=== PATIENT | male | born 1985 | race American Indian/Alaskan Native ===

== ENCOUNTER 2016-10-12 10:33 | Emergency (ER) | payer MEDICAID, OTHER ==
[2016-10-12 10:33] VITALS: BMI 38.8
[2016-10-12 10:43] VITALS: O2SAT 98
--- NOTE | 2016-10-12 11:18 | ED PDOC ---
Arrival/HPI - General Chief Complaint: Trauma Time Seen by Provider: 10/12/16 11:18 Historian: Patient - History of Present Illness Narrative History of Present Illness (Text): 10/12/16 11:27 This 31 yo male presents to this ED c/o left shoulder, and left upper back pain x 2 days. Patient stated he tripped and fell down on a "pallet" at work. Denies loc, head injury, dizziness, n/v, neck pain, saddle anesthesia, GI/ incontinence, urinary retention, weakness, Context: Work Past Medical History - Provider Review Nursing Documentation Reviewed: Yes - Infectious Disease Hx of Infectious Diseases: None - Tetanus Immunization Tetanus Immunization: Unknown - Past Medical History Past Medical History: No Previous - Cardiac Hx Hypertension: Yes - Psychiatric Hx Depression: No Hx Emotional Abuse: No Hx Physical Abuse: No Hx Substance Use: No - Past Surgical History Past Surgical History: No Previous - Anesthesia Hx Anesthesia: No - Suicidal Assessment Feels Threatened In Home Enviroment: No Family/Social History - Physician Review Nursing Documentation Reviewed: Yes Family/Social History: No Known Family HX Smoking Status: Never Smoked Hx Alcohol Use: Yes (social) Frequency of alcohol use: Socially Hx Substance Use: No Hx Substance Use Treatment: No Allergies/Home Meds Allergies/Adverse Reactions: Allergies Sulfa (Sulfonamide Antibiotics) Allergy (Verified 10/12/16 10:43) ANGIOEDEMA Iodinated Contrast Media - Oral and Adverse Reaction (Verified 10/12/16 10:43) ANAPHYLAXIS Review of Systems - Review of Systems Constitutional: Normal. absent: Fatigue, Weight Change, Fevers, Night Sweats Eyes: Normal ENT: Normal Respiratory: Normal Cardiovascular: Normal Gastrointestinal: Normal Genitourinary Male: Normal Musculoskeletal: Other (right shoulder pain. right upper back pain) Skin: Normal Neurological: Normal Endocrine: Normal Hemo/Lymphatic: Normal Psychiatric: Normal Physical Exam Vital Signs Temp Pulse Resp BP Pulse Ox 10/12/16 11:38 98.9 F 90 18 142/91 H 98 10/12/16 10:40 99.7 F H 90 16 146/104 H 98 Temperature: Afebrile Blood Pressure: Normal Pulse: Regular Respiratory Rate: Normal Appearance: Positive for: Well-Appearing, Non-Toxic, Comfortable Pain Distress: None Mental Status: Positive for: Alert and Oriented X 3 - Systems Exam Head: Present: Atraumatic, Normocephalic Pupils: Present: PERRL Extroacular Muscles: Present: EOMI Conjunctiva: Present: Normal Mouth: Present: Moist Mucous Membranes Neck: Present: Normal Range of Motion Respiratory/Chest: Present: Clear to Auscultation, Good Air Exchange, Tender to Palpation (posterior upper back tenderness). No: Respiratory Distress, Accessory Muscle Use, Wheezes Cardiovascular: Present: Regular Rate and Rhythm, Normal S1, S2. No: Murmurs Abdomen: Present: Normal Bowel Sounds. No: Tenderness, Distention, Peritoneal Signs Back: Present: Normal Inspection. No: CVA Tenderness Upper Extremity: Present: Normal Inspection, Normal ROM, NORMAL PULSES, Neurovascularly Intact, Capillary Refill < 2s. No: Cyanosis, Edema Lower Extremity: Present: Normal Inspection, NORMAL PULSES, Normal ROM, Neurovascularly Intact, Capillary Refill < 2 s. No: Edema, CALF TENDERNESS Neurological: Present: GCS=15, CN II-XII Intact, Speech Normal, Motor Func Grossly Intact, Normal Sensory Function, Normal Cerebellar Funct, Gait Normal Skin: Present: Warm, Dry, Normal Color. No: Rashes Psychiatric: Present: Alert, Oriented x 3, Normal Insight, Normal Concentration Medical Decision Making ED Course and Treatment: 10/12/16 13:23 Re-evaluation. Patient feels better. Discussed results and plan with patient who expresses understanding. All questions answered and there is agreement with the plan to discharge home with instructions. Patient stable for discharge. Return if symptoms persist or worsen. Re-evaluation Time: 13:23 Reassessment Condition: Re-examined, Improved - RAD Interpretation Narrative RAD Interpretations (Text): 10/12/16 13:21 Accession No. : [id number] Patient Name / ID : CAROLINA FARIAS / [id number] Exam Date : 10/12/2016 12:09:23 ( Approved ) Study Comment : Sex / Age : M / 31Y Creator : Rkii Richey MD Dictator : Riki Richey MD Fuel Testing Technician : Mesh Man : Riki Richey MD Approver2 : Report Date : 10/12/2016 13:17:33 My Comment : PROCEDURE: Radiographs of the Chest and Left Ribs. HISTORY: pain COMPARISON: None available. TECHNIQUE: Frontal radiograph of the chest and multiple oblique radiographs of the left ribs were obtained. FINDINGS: LEFT RIBS: No fracture or focal lesion visualized. LUNGS: Clear. PLEURA: No pneumothorax or pleural fluid. CARDIOVASCULAR: Normal sized heart. No pulmonary vascular congestion. OTHER FINDINGS: None. IMPRESSION: Unremarkable radiographs of the chest and left ribs. No left rib fracture. 10/12/16 13:22 Accession No. : [id number] Patient Name / ID : CAROLINA FARIAS / [id number] Exam Date : 10/12/2016 12:20:29 ( Approved ) Study Comment : Sex / Age : M / 31Y Creator : Riki Richey MD Dictator : Riki Richey MD Fuel Testing Technician : Mesh Man : Riki Richey MD Approver2 : Report Date : 10/12/2016 13:16:23 My Comment : PROCEDURE: Radiographs of the Left Shoulder HISTORY: pain COMPARISON: 03/05/2014 FINDINGS: BONES: Normal. No fracture. JOINTS: Normal. Glenohumeral and acromioclavicular joints preserved. No osteoarthritis. SOFT TISSUES: Normal. OTHER FINDINGS: None. IMPRESSION: Normal radiographs of the left shoulder. Radiology Orders: 10/12/16 11:24 RIBS LEFT & PA CHEST [RAD] Stat SHOULDER LEFT [RAD] Stat - Medication Orders Current Medication Orders: Discontinued Medications Acetaminophen (Tylenol 325mg Tab) 975 mg PO STAT STA Stop: 10/12/16 11:34 Last Admin: 10/12/16 11:40 Dose: 975 mg Ketorolac Tromethamine (Toradol) 15 mg IM STAT STA Stop: 10/12/16 11:26 Last Admin: 10/12/16 11:36 Dose: 15 mg Disposition/Present on Arrival - Present on Arrival Any Indicators Present on Arrival: No History of DVT/PE: No History of Uncontrolled Diabetes: No Urinary Catheter: No History of Decub. Ulcer: No History Surgical Site Infection Following: None - Disposition Have Diagnosis and Disposition been Completed?: Yes Diagnosis: Shoulder pain, left, Chest wall pain Disposition: HOME/ ROUTINE Disposition Time: 13:23 Patient Plan: Discharge Condition: GOOD Discharge Instructions (ExitCare): Shoulder Pain (ED), Chest Wall Pain (ED) Additional Instructions: Call private doctor for follow up visit in 1-2 days. Take medication as instructed. Return to emergency if symptoms worsen. Prescriptions: Methocarbamol [Robaxin-750] 750 mg PO TID PRN #15 tab PRN Reason: Pain, Moderate (4-7) Naproxen 500 mg PO BID PRN #14 tab PRN Reason: Pain, Moderate (4-7) Referrals: Adelaida Fowler MD [Primary Care Provider] - Follow up with primary Forms: WORK NOTE
[2016-10-12 11:39] VITALS: RESP 18; TEMP 98.9
--- NOTE | 2016-10-12 13:18 | RAD ---
PROCEDURE: Radiographs of the Left Shoulder HISTORY: pain COMPARISON: 03/05/2014 FINDINGS: BONES: Normal. No fracture. JOINTS: Normal. Glenohumeral and acromioclavicular joints preserved. No osteoarthritis. SOFT TISSUES: Normal. OTHER FINDINGS: None. IMPRESSION: Normal radiographs of the left shoulder.
--- NOTE | 2016-10-12 13:19 | RAD ---
PROCEDURE: Radiographs of the Chest and Left Ribs. HISTORY: pain COMPARISON: None available. TECHNIQUE: Frontal radiograph of the chest and multiple oblique radiographs of the left ribs were obtained. FINDINGS: LEFT RIBS: No fracture or focal lesion visualized. LUNGS: Clear. PLEURA: No pneumothorax or pleural fluid. CARDIOVASCULAR: Normal sized heart. No pulmonary vascular congestion. OTHER FINDINGS: None. IMPRESSION: Unremarkable radiographs of the chest and left ribs. No left rib fracture.
[2016-10-12 13:22] VITALS: BP 138/86; PULSE 86
== END 2016-10-12 13:43 | disposition home or self-care (01) ==
LOC: ED 10:33
DX: R07.89 Other chest pain (principal); M25.512 Pain in left shoulder; I10 Essential (primary) hypertension
CPT/HCPCS: 29240; 71101; 73030; 96372; 99284; J1885

== ENCOUNTER 2017-10-25 17:03 | Emergency (ER) | payer OTHER ==
[2017-10-25 17:04] VITALS: BMI 38.8
[2017-10-25 17:13] VITALS: TEMP 99.2
--- NOTE | 2017-10-25 17:50 | ED PDOC ---
Arrival/HPI - General Chief Complaint: Cough, Cold, Congestion Time Seen by Provider: 10/25/17 17:16 - History of Present Illness Narrative History of Present Illness (Text): 10/25/17 17:43 Patient is a 32 year old non-smoking male with no significant past medical history who presents to the Emergency department comlpaining of shortness of breath. Patient says that last week he noticed his allergies started to worsen because of all the pollen in the air and was having sinus congestion, sinus headache, and clear rhinorrhea that progressed to thicker yellow nasal discharge on Tuesday. Patient says that these symptoms have not improved and yesterday he started having chest tightness and pleuritic chest pain. Then today when the patient woke up he started having a nonproductive cough, shortness of breath, and wheezing. He admits to associated chills and sweats, although he did not take his temperature at home and is unsure if he had a fever , ear fullness, and nausea. Patient denies sore throat, palpitations, dizziness , ear pain, vomiting, diarrhea, constipation, changes in urinary habits, pain/ swelling in the lower extremities, recent travel, and sick contacts. Past Medical History - Infectious Disease Hx of Infectious Diseases: None - Tetanus Immunization Tetanus Immunization: Unknown - Past Medical History Past Medical History: No Previous - Cardiac Hx Cardiac Disorders: Yes Hx Hypertension: Yes - Pulmonary Hx Respiratory Disorders: No - Neurological Hx Neurological Disorder: No - HEENT Hx HEENT Disorder: No - Renal Hx Renal Disorder: No - Endocrine/Metabolic Hx Endocrine Disorders: No - Hematological/Oncological Hx Blood Disorders: No - Integumentary Hx Dermatological Disorder: No - Musculoskeletal/Rheumatological Hx Musculoskeletal Disorders: No - Gastrointestinal Hx Gastrointestinal Disorders: No - Genitourinary/Gynecological Hx Genitourinary Disorders: No - Psychiatric Hx Psychophysiologic Disorder: No Hx Substance Use: No - Past Surgical History Past Surgical History: No Previous - Anesthesia Hx Anesthesia: No - Suicidal Assessment Feels Threatened In Home Enviroment: No Family/Social History Family/Social History: Diabetes, Hypertension Smoking Status: Never Smoked Hx Alcohol Use: Yes Frequency of alcohol use: Socially Hx Substance Use: No Hx Substance Use Treatment: No Allergies/Home Meds Allergies/Adverse Reactions: Allergies Sulfa (Sulfonamide Antibiotics) Allergy (Verified 10/25/17 17:07) ANGIOEDEMA Iodinated Contrast- Oral and IV Dye Adverse Reaction (Verified 10/25/17 17:07) ANAPHYLAXIS Review of Systems - Physician Review All systems were reviewed & negative as marked: Yes (as per HPI) - Review of Systems Constitutional: Other (alternating chills and sweats) Eyes: absent: Vision Changes, Eye Pain ENT: Hearing Changes (dull in the left), Rhinorrhea, Sinus Congestion. absent: Sore Throat Respiratory: SOB, Cough, Wheezing. absent: Sputum Cardiovascular: Chest Pain (reproducible). absent: Palpitations, Edema, Calf Pain Gastrointestinal: Normal. absent: Abdominal Pain, Constipation, Diarrhea, Nausea, Vomiting, Appetite Changes Genitourinary Male: Normal. absent: Dysuria, Frequency, Hematuria Musculoskeletal: Normal. absent: Arthralgias, Myalgias Skin: Normal. absent: Rash Neurological: Headache. absent: Dizziness Endocrine: Normal Hemo/Lymphatic: Normal Psychiatric: Normal Physical Exam Vital Signs Temp Pulse Resp BP Pulse Ox 10/25/17 17:08 99.2 F 93 H 20 146/100 H 95 - Systems Exam Head: Present: Atraumatic, Normocephalic, Tenderness (sinuses TTP) Pupils: Present: PERRL Extroacular Muscles: Present: EOMI Conjunctiva: Present: Normal Mouth: Present: Moist Mucous Membranes Pharnyx: Present: Normal. No: ERYTHEMA, EXUDATE, TONSILS ENLARGED Nose (Internal): Present: Normal Inspection Neck: Present: Normal Range of Motion. No: Lymphadenopathy Respiratory/Chest: Present: Wheezes (heard in the right upper lung anteriorly). No: Rhonchi Cardiovascular: Present: Regular Rate and Rhythm, Normal S1, S2. No: Murmurs Abdomen: Present: Normal Bowel Sounds. No: Tenderness, Distention, Peritoneal Signs Back: Present: Normal Inspection Upper Extremity: Present: Normal Inspection Lower Extremity: Present: Normal Inspection Neurological: Present: GCS=15, Speech Normal Skin: Present: Warm, Dry, Normal Color. No: Rashes Psychiatric: Present: Alert, Oriented x 3, Normal Insight, Normal Concentration Medical Decision Making ED Course and Treatment: 10/25/17 18:29 Chest X-ray: No infiltrates seen Discussed with PMD, Dr. Fowler, who agrees with management. Patient will be discharged with antibiotics and told to follow up with Dr. Fowler in her office. - RAD Interpretation Radiology Orders: 10/25/17 17:40 CHEST TWO VIEWS (PA/LAT) [RAD] Stat - PA / JAVA SECURITY ENGINEER / Resident Statement /DO has reviewed & agrees with the documentation as recorded. / has examined the patient and agrees with the treatment plan. Disposition/Present on Arrival - Present on Arrival Any Indicators Present on Arrival: No History of DVT/PE: No History of Uncontrolled Diabetes: No Urinary Catheter: No History of Decub. Ulcer: No History Surgical Site Infection Following: None - Disposition Have Diagnosis and Disposition been Completed?: Yes Diagnosis: Acute sinusitis Disposition: HOME/ ROUTINE Disposition Time: 18:32 Patient Plan: Discharge Condition: STABLE Discharge Instructions (ExitCare): Sinusitis in Adults Prescriptions: Amoxicillin/Clavulanate [Augmentin 875 MG-125 MG] 1 tab PO BID #14 tab Referrals: Adelaida Fowler MD [Primary Care Provider] - Follow up with primary Forms: [facility] (Pashto), WORK NOTE
--- NOTE | 2017-10-25 18:35 | RAD ---
HISTORY: cough COMPARISON: 10/12/2016 TECHNIQUE: Chest PA and lateral FINDINGS: LUNGS: No active pulmonary disease. PLEURA: No significant pleural effusion identified. No pneumothorax apparent. CARDIOVASCULAR: Normal. OSSEOUS STRUCTURES: No significant abnormalities. VISUALIZED UPPER ABDOMEN: Normal. OTHER FINDINGS: None. IMPRESSION: No active disease.
[2017-10-25 19:27] VITALS: BP 135/82; PULSE 89; RESP 18; O2SAT 97
--- NOTE | 2017-10-28 13:44 | CARD ---
APPROVED REPORT EKG Measurement Heart [id number] <Conclusion> Normal sinus rhythm Left axis deviation Incomplete right bundle branch block Moderate voltage criteria for LVH, may be normal variant Nonspecific T wave abnormality
== END 2017-10-25 18:38 | disposition home or self-care (01) ==
LOC: ED 17:03
DX: J01.90 Acute sinusitis, unspecified (principal); I10 Essential (primary) hypertension

== ENCOUNTER 2018-02-14 23:07 | Emergency (ER) | payer OTHER ==
[2018-02-15 00:21] VITALS: BMI 38.9
--- NOTE | 2018-02-15 00:22 | ED PDOC ---
"Arrival/HPI - General Time Seen by Provider: 02/15/18 00:21 Historian: Patient - History of Present Illness Narrative History of Present Illness (Text): 02/15/18 00:21 32 y/o male, pmh including sinusitis, allergic to sulfa medication and contrast dye, c/o lower abdominal pain and testicular swelling with fever x 3 days. Pt. stated that he has been having fever 103F at home on tuesday, associated with lower abdominal pain which he feels constipated but did had bowel movement today , stated that he feels the rt. testicle has been swollen but no penile discharge , last sexual encounter about 1 month ago, no night sweat, no rash, no coughing , no neck stiffness or blurry vision, no other medical or psychological complaints. PMD: Dr. Fowler Past Medical History - Provider Review Nursing Documentation Reviewed: Yes - Infectious Disease Hx of Infectious Diseases: None - Tetanus Immunization Tetanus Immunization: Unknown - Past Medical History Past Medical History: No Previous - Cardiac Hx Cardiac Disorders: Yes Hx Hypertension: Yes - Pulmonary Hx Respiratory Disorders: No - Neurological Hx Neurological Disorder: No - HEENT Hx HEENT Disorder: No - Renal Hx Renal Disorder: No - Endocrine/Metabolic Hx Endocrine Disorders: No - Hematological/Oncological Hx Blood Disorders: No - Integumentary Hx Dermatological Disorder: No - Musculoskeletal/Rheumatological Hx Musculoskeletal Disorders: No - Gastrointestinal Hx Gastrointestinal Disorders: No - Genitourinary/Gynecological Hx Genitourinary Disorders: No - Psychiatric Hx Psychophysiologic Disorder: No Hx Substance Use: No - Past Surgical History Past Surgical History: No Previous - Anesthesia Hx Anesthesia: No - Suicidal Assessment Feels Threatened In Home Enviroment: No Family/Social History - Physician Review Nursing Documentation Reviewed: Yes Family/Social History: Unknown Family HX Smoking Status: Never Smoked Hx Alcohol Use: Yes Hx Substance Use: No Hx Substance Use Treatment: No Allergies/Home Meds Allergies/Adverse Reactions: Allergies Sulfa (Sulfonamide Antibiotics) Allergy (Verified 02/15/18 00:21) ANGIOEDEMA Iodinated Contrast- Oral and IV Dye Adverse Reaction (Verified 02/15/18 00:21) ANAPHYLAXIS Review of Systems - Review of Systems Constitutional: absent: Fatigue, Fevers Eyes: absent: Vision Changes ENT: absent: Hearing Changes Respiratory: absent: SOB, Cough Cardiovascular: absent: Chest Pain Gastrointestinal: Abdominal Pain. absent: Diarrhea, Nausea, Vomiting Musculoskeletal: absent: Arthralgias, Back Pain Skin: absent: Rash, Pruritis Psychiatric: absent: Anxiety, Depression, Suicidal Ideation Physical Exam Vital Signs Reviewed: Yes Vital Signs Temp Pulse Resp BP Pulse Ox 02/15/18 03:58 78 20 130/92 H 98 02/15/18 01:30 18 134/70 98 02/15/18 00:22 99.0 F 90 18 157/102 H 99 Temperature: Afebrile Blood Pressure: Hypertensive Pulse: Regular Respiratory Rate: Normal Appearance: Positive for: Well-Appearing, Non-Toxic, Comfortable Pain Distress: Mild Mental Status: Positive for: Alert and Oriented X 3 - Systems Exam Head: Present: Atraumatic, Normocephalic Pupils: Present: PERRL Extroacular Muscles: Present: EOMI Conjunctiva: Present: Normal Mouth: Present: Moist Mucous Membranes Neck: Present: Normal Range of Motion Respiratory/Chest: Present: Clear to Auscultation, Good Air Exchange. No: Respiratory Distress, Accessory Muscle Use Cardiovascular: Present: Regular Rate and Rhythm, Normal S1, S2. No: Murmurs Abdomen: Present: Tenderness (LLQ), Other (negative christiansen). No: Distention, Peritoneal Signs, Rebound, Guarding Genitourinary Male: Present: Normal External Genitalia, Circumcised Penis. No: Lesions, Penile Discharge, Testicle Tenderness, Penile Swelling, Masses, Erythema, Hernias, Testicle Swelling Back: Present: Normal Inspection Upper Extremity: Present: Normal Inspection. No: Cyanosis, Edema Lower Extremity: Present: Normal Inspection. No: Edema Neurological: Present: GCS=15, CN II-XII Intact, Speech Normal Skin: Present: Warm, Dry, Normal Color. No: Rashes Psychiatric: Present: Alert, Oriented x 3, Normal Insight, Normal Concentration Medical Decision Making ED Course and Treatment: 02/15/18 00:41 Differential: Pancreatitis vs. Diverticulitis vs. Epididmysitis/Orchitis vs. UTI -Labs/lipase/UA -CT abdomen and pelvis (pt. is allergic to oral and IV contrast since 5 year old ) -Scrotal sonogram -IVF/pepcid -Observe and reassess 02/15/18 03:04 -CT abdomen and pelvis show: No acute findings -Labs are non-significant with no elevation of wbc -Lipase within normal limit -UA and testicular sonogram ordered, pending result. -Pt. is still sleeping, resting comfortably, easily arousable, offers no other medical or psychological complaints, vitally stable, pending labs/radiology result -Case discussed and endorsed to the current ER attending Dr. Babin for re- evaluation/pending UA/Testicular sonogram study. - Lab Interpretations Lab Results: 02/15/18 01:07 02/15/18 01:07 Lab Results 02/15/18 01:07: Sodium 143, Potassium 4.0, Chloride 102, Carbon Dioxide 30, Anion Gap 15, BUN 11, Creatinine 0.9, Est GFR ( Amer) > 60, Est GFR (Non- Af Amer) > 60, Random Glucose 100, Calcium 8.6, Magnesium 2.0, Total Bilirubin 0.7, AST 28, ALT 25, Alkaline Phosphatase 64, Total Protein 7.5, Albumin 3.9, Globulin 3.6, Albumin/Globulin Ratio 1.1, Lipase 28 02/15/18 01:07: WBC 4.9 D, RBC 4.26, Hgb 12.3 L, Hct 37.2 L, MCV 87.3, MCH 28.9 , MCHC 33.1, RDW 12.2, Plt Count 199, MPV 10.6, Gran % 50.2, Lymph % (Auto) 24.1 , Ross % (Auto) 24.1 H, Eos % (Auto) 1.0 L, Baso % (Auto) 0.6, Gran # 2.44, Lymph # (Auto) 1.2, Ross # (Auto) 1.2 H, Eos # (Auto) 0.1, Baso # (Auto) 0.03, Neutrophils % (Manual) 54, Band Neutrophils % 1, Lymphocytes % (Manual) 25, Monocytes % (Manual) 20 H, Platelet Evaluation Normal, Large Platelets Present, Giant Platelets Present - RAD Interpretation Radiology Orders: 02/15/18 00:37 ABD & PELVIS W/O PO OR IV CONT [CT] Stat TESTES DUPLEX COMPLETE [US] Stat Testicular sonogram: CT Abdomen and pelvis: Lung bases: No acute findings. No mass. No consolidation. ABDOMEN: Liver: No acute findings. Gallbladder and bile ducts: No acute findings. No calcified stones. No ductal dilation. Pancreas: No acute findings. No ductal dilation. Spleen: No acute findings. No splenomegaly. Adrenals: No acute findings. No mass. Kidneys and ureters: No acute findings. No obstructing stones. No hydronephrosis. Stomach and bowel: No acute findings. No obstruction. No mucosal thickening. PELVIS: Appendix: No findings to suggest acute appendicitis. Bladder: No acute findings. No stones. JARRETT FIGUEROA | Preliminary Radiology Report DOCUMENT CONTROL ASSOCIATE (QA) DISCREPANCY? If there is a discrepancy between the preliminary and final interpretation, please notify [facility] via [email or web address]. If you do not have access to our QA portal, call our QA team at [phone] CONFIDENTIALITY STATEMENT This report is intended only for the use of the referring physician, and only in accordance with law, If you received this in error, call [phone] Page 2 of 2 Reproductive: No acute findings. ABDOMEN and PELVIS: Intraperitoneal space: No acute findings. No free air. No significant fluid collection. Bones/joints: No acute fracture. No dislocation. Soft tissues: No acute findings. Vasculature: No acute findings. No abdominal aortic aneurysm. Lymph nodes: No acute findings. No enlarged lymph nodes. IMPRESSION: No acute findings. Thank you for allowing us to participate in the care of your patient. Dictated and Authenticated by: Kaleb Xavier MD 02/15/2018 2:38 AM Eastern Time ([place] & [place]) Consumer Marketing Analyst: Radiologist - Medication Orders Current Medication Orders: Discontinued Medications Amoxicillin (Amoxil 500 Mg Cap) 500 mg PO STAT STA PRN Reason: Protocol Stop: 02/15/18 03:35 Last Admin: 02/15/18 03:57 Dose: 500 mg Dexamethasone (Decadron Inj) 10 mg IM STAT STA Stop: 02/15/18 03:35 Last Admin: 02/15/18 03:57 Dose: 10 mg IM Administration Charges Document 02/15/18 03:57 SS (Rec: 02/15/18 03:57 SS [id number]) Injection Site MAR Injection Site Left Vastus Lateralis Charges for Administration # of IM Administrations 1 Famotidine (Pepcid) 20 mg IVP STAT STA Stop: 02/15/18 00:40 Last Admin: 02/15/18 01:37 Dose: 20 mg IVP Administration Document 02/15/18 01:37 SS (Rec: 02/15/18 01:37 SS [id number]) Charges for Administration # of IVP Administrations 1 Sodium Chloride (Sodium Chloride 0.9%) 1,000 mls @ 999 mls/hr IV .Q1H1M STA Stop: 02/15/18 01:37 Last Admin: 02/15/18 01:38 Dose: 999 mls/hr eMAR Start Stop Document 02/15/18 01:38 SS (Rec: 02/15/18 01:38 SS [id number]) Intravenous Solution Start Date 02/15/18 Start Time 01:38 End Date 02/15/18 End time 02:38 Total Infusion Time 60 Ibuprofen (Motrin Tab) 400 mg PO ONCE STA Stop: 02/15/18 03:35 Last Admin: 02/15/18 03:57 Dose: 400 mg - PA / REAMER HAND / Resident Statement MD/DO has reviewed & agrees with the documentation as recorded. Disposition/Present on Arrival - Present on Arrival Any Indicators Present on Arrival: No History of DVT/PE: No History of Uncontrolled Diabetes: No Urinary Catheter: No History of Decub. Ulcer: No History Surgical Site Infection Following: None - Disposition Have Diagnosis and Disposition been Completed?: Yes Diagnosis: Pharyngitis, acute, Viral syndrome Disposition: HOME/ ROUTINE Disposition Time: 03:05 Patient Plan: Other (transfer the care to Dr. Babin) Condition: GOOD Discharge Instructions (ExitCare): Sore Throat in Adults Prescriptions: Amoxicillin 875 mg PO BID #20 tab Referrals: Rebeka Valenzuela MD [Medical Doctor] - Follow up with primary Forms: [employer] ([place] Islander), WORK NOTE"
[2018-02-15 00:24] VITALS: TEMP 99
[2018-02-15] MEDS ORDERED: Sodium Chloride 0.9% 1,000 ML IV STA (00:37)
[2018-02-15 01:41] VITALS: O2SAT 98
[2018-02-15 01:42] LABS: BASO # 0.03 K/mm3 (0.0-2.0); BASO % 0.6 % (0.0-3.0); EOS # 0.1 (0.0-0.7); GRAN # 2.44 (1.4-6.5); GRAN % 50.2 % (50.0-68.0); HEMOGLOBIN 12.3 g/dL (14.0-18.0); LYMPH # 1.2 (1.2-3.4); LYMPH % 24.1 % (22.0-35.0); MEAN CELL VOLUME 87.3 fl (80.0-105.0); MEAN CORPUSCULAR HEMOGLOBIN 28.9 pg (25.0-35.0); MEAN CORPUSCULAR HGB CONC 33.1 g/dl (31.0-37.0); MEAN PLATELET VOLUME 10.6 fl (7.0-11.0); MONO # 1.2 (0.1-0.6); MONO % 24.1 % (1.0-6.0); PLATELET COUNT 199 10^3/uL (120.0-450.0); RBC 4.26 10^6/uL (3.5-6.1); RED CELL DISTRIBUTION WIDTH 12.2 % (11.5-14.5); WHITE BLOOD COUNT 4.9 10^3/ul (4.5-11.0)
[2018-02-15 01:54] LABS: ALB/GLOB RATIO 1.1 (1.1-1.8); ALBUMIN 3.9 g/dL (3.0-4.8); ALT/SGPT 25 U/L (7-56); AST/SGOT 28 U/L (17-59); BLOOD UREA NITROGEN 11 mg/dL (7-21); CALCIUM 8.6 mg/dL (8.4-10.5); GFR NON-AFRICAN AMERICAN > 60; LIPASE 28 U/L (23-300)
[2018-02-15 02:12] LABS: BAND 1 % (0-2); LYMPHOCYTE 25 % (22.0-35.0); NEUTROPHIL 54 % (50.0-70.0)
[2018-02-15 02:15] LABS: MONOCYTE 20 % (1.0-6.0); PLATELET ESTIMATE NORMAL (NORMAL)
[2018-02-15 02:16] LABS: GIANT PLATELETS PRESENT; LARGE PLATELETS PRESENT
[2018-02-15 03:59] VITALS: BP 130/92; PULSE 78; RESP 20
--- NOTE | 2018-02-15 07:33 | US ---
Date of service: 02/15/2018 HISTORY: testicular swelling? TECHNIQUE: Realtime sonography through the scrotum with color and doppler flow. COMPARISON: None Available. FINDINGS: RIGHT TESTICLE: Measures 3.5 x 2.0 x 2.9 cm. Blood flow is demonstrated. Unremarkable echotexture. RIGHT EPIDIDYMIS: Unremarkable. LEFT TESTICLE: Measures 4.4 x 2.1 x 3.2 cm. Blood flow is demonstrated. Unremarkable echotexture. LEFT EPIDIDYMIS: Unremarkable. HYDROCELE: Small left-sided hydrocele. VARICOCELE: Bilateral varicoceles. OTHER FINDINGS: None. IMPRESSION: Small left-sided hydrocele. Bilateral varicoceles. Preliminary impression was provided by virtual radiologic.
--- NOTE | 2018-02-15 07:49 | CT ---
PROCEDURE: CT Abdomen and Pelvis without Oral or IV contrast. HISTORY: lower abdominal pain COMPARISON: None available TECHNIQUE: Contiguous axial images of the abdomen and pelvis. No oral or IV contrast administered. Coronal and Sagittal reformats generated. Radiation dose: Total exam DLP = 1081.78 mGy-cm. This CT exam was performed using one or more of the following dose reduction techniques: Automated exposure control, adjustment of the mA and/or kV according to patient size, and/or use of iterative reconstruction technique. FINDINGS: There is limited evaluation of the solid organs without the administration of IV contrast. LOWER THORAX: No visible consolidation, pleural effusion, or pneumothorax. Small hiatal hernia/distal esophageal wall thickening. LIVER: Unremarkable unenhanced appearance. GALLBLADDER AND BILE DUCTS: Unremarkable unenhanced appearance. PANCREAS: Unremarkable unenhanced appearance. SPLEEN: Unremarkable unenhanced appearance. ADRENALS: Unremarkable unenhanced appearance. KIDNEYS AND URETERS: No hydronephrosis or obstructing renal calculus. BLADDER: The urinary bladder appears unremarkable. REPRODUCTIVE: Unremarkable. APPENDIX: The appendix appears within normal limits of caliber. No secondary signs of acute appendicitis. BOWEL: The stomach is nondistended. Lack of oral contrast limits evaluation for bowel pathology. The bowel loops appear within normal limits of caliber without evidence of intestinal obstruction. PERITONEUM: No significant free fluid. No definite free air. LYMPH NODES: No bulky lymphadenopathy identified. VASCULATURE: No aortic aneurysm. BONES: No acute osseous abnormality is detected. OTHER FINDINGS: None. IMPRESSION: No acute pathology identified. Findings as above. Preliminary impression was provided by virtual radiologic.
== END 2018-02-15 03:59 | disposition home or self-care (01) ==
LOC: ED 23:07
DX: J02.9 Acute pharyngitis, unspecified (principal); B34.9 Viral infection, unspecified; I10 Essential (primary) hypertension
CPT/HCPCS: 74176; 80053; 83690; 83735; 85025; 93975; 96361; 96372; 96374; 99283; J1100; J7030

== ENCOUNTER 2018-04-19 18:57 | Emergency (ER) | payer OTHER ==
[2018-04-19 19:07] VITALS: BMI 39.1
[2018-04-19 19:16] VITALS: BP 163/99; PULSE 85; RESP 16; TEMP 99.2; O2SAT 99
--- NOTE | 2018-04-19 20:09 | ED PDOC ---
Arrival/HPI - General Chief Complaint: Back Pain Time Seen by Provider: 04/19/18 19:22 Historian: Patient - History of Present Illness Narrative History of Present Illness (Text): 04/19/18 20:06 Patient is a 32 year old male with no significant past medical history, who presents to the Emergency department complaining of mid lower to lower back pain, which started today. Patient reports that his discomfort is reproducible with bending, and movement. He denies any recent trauma to the area, and thinks he positioned himself awkwardly causing his discomfort. Patient states he feels better when resting. patient denies any abdominal pain, leg or arm weakness, urinary or bowel habit changes, fever, or any other complaints. Time/Duration: Other (Today) Symptom Onset: Sudden Symptom Course: Unchanged Context: Home Past Medical History - Provider Review Nursing Documentation Reviewed: Yes - Infectious Disease Hx of Infectious Diseases: None - Tetanus Immunization Tetanus Immunization: Unknown - Past Medical History Past Medical History: No Previous - Cardiac Hx Cardiac Disorders: Yes Hx Hypertension: Yes - Pulmonary Hx Respiratory Disorders: No - Neurological Hx Neurological Disorder: No - HEENT Hx HEENT Disorder: No - Renal Hx Renal Disorder: No - Endocrine/Metabolic Hx Endocrine Disorders: No - Hematological/Oncological Hx Blood Disorders: No - Integumentary Hx Dermatological Disorder: No - Musculoskeletal/Rheumatological Hx Musculoskeletal Disorders: No - Gastrointestinal Hx Gastrointestinal Disorders: No - Genitourinary/Gynecological Hx Genitourinary Disorders: No - Psychiatric Hx Psychophysiologic Disorder: No Hx Substance Use: No - Past Surgical History Past Surgical History: No Previous - Anesthesia Hx Anesthesia: No - Suicidal Assessment Feels Threatened In Home Enviroment: No Family/Social History - Physician Review Nursing Documentation Reviewed: Yes Family/Social History: No Known Family HX Smoking Status: Never Smoked Hx Alcohol Use: Yes Hx Substance Use: No Hx Substance Use Treatment: No Allergies/Home Meds Allergies/Adverse Reactions: Allergies Sulfa (Sulfonamide Antibiotics) Allergy (Verified 04/19/18 19:33) ANGIOEDEMA Iodinated Contrast- Oral and IV Dye Adverse Reaction (Verified 04/19/18 19:33) ANAPHYLAXIS Review of Systems - Physician Review All systems were reviewed & negative as marked: Yes - Review of Systems Constitutional: absent: Fevers Gastrointestinal: absent: Abdominal Pain, Constipation, Diarrhea Genitourinary Male: absent: Urinary Output Changes Musculoskeletal: Back Pain. absent: Neck Pain Neurological: absent: Headache, Dizziness, Other (upper or lower extremity weakness) Physical Exam Vital Signs Reviewed: Yes Vital Signs Temp Pulse Resp BP Pulse Ox 04/19/18 19:06 99.2 F 85 16 163/99 H 99 Temperature: Afebrile Blood Pressure: Hypertensive Pulse: Regular Respiratory Rate: Normal Appearance: Positive for: Well-Appearing Mental Status: Positive for: Alert and Oriented X 3 - Systems Exam Head: Present: Atraumatic, Normocephalic Pupils: Present: PERRL Extroacular Muscles: Present: EOMI Conjunctiva: Present: Normal Mouth: Present: Moist Mucous Membranes Neck: Present: Normal Range of Motion Respiratory/Chest: Present: Clear to Auscultation, Good Air Exchange. No: Respiratory Distress, Accessory Muscle Use Cardiovascular: Present: Regular Rate and Rhythm, Normal S1, S2. No: Murmurs Abdomen: No: Tenderness, Distention, Peritoneal Signs Back: Present: Normal Inspection, Paraspinal Tenderness (mild para lumbar tenderness and spasm.). No: Other (dorsal spinal tenderness) Upper Extremity: Present: Normal Inspection, Normal ROM. No: Cyanosis, Edema Lower Extremity: Present: Normal Inspection, Normal ROM. No: Edema Neurological: Present: GCS=15, CN II-XII Intact, Speech Normal, Motor Func Grossly Intact, Normal Sensory Function Skin: Present: Warm, Dry, Normal Color. No: Rashes Psychiatric: Present: Alert, Oriented x 3, Normal Insight, Normal Concentration Medical Decision Making ED Course and Treatment: 04/19/18 20:10 Impression: 32 year old male complaining of back pain that started today, and which he attributes to awkward positioning. Differential Diagnosis included but are not limited to: musculoskeletal pain vs. sciatica vs. fracture. Plan: -- Flexeril -- Toradol -- Dorsal spine X-ray -- Spine X-ray -- Reassess and disposition Prior Visits: Notes and results from previous visits were reviewed. Progress Notes: - RAD Interpretation Radiology Orders: 04/19/18 19:32 DORSAL (THORACIC) SPINE [RAD] Stat LS SPINE WITH OBL > 18 YRS OLD [RAD] Stat - Medication Orders Current Medication Orders: Discontinued Medications Cyclobenzaprine HCl (Flexeril) 10 mg PO ONCE ONE Stop: 04/19/18 19:33 Last Admin: 04/19/18 19:40 Dose: 5 mg Ketorolac Tromethamine (Toradol) 60 mg IM ONCE ONE Stop: 04/19/18 19:33 Last Admin: 04/19/18 19:39 Dose: 60 mg MAR Pain Assessment Document 04/19/18 19:39 TA (Rec: 04/19/18 19:40 TA [id number] Pain Reassessment Is this a pain reassessment? No Sleep Is patient sleeping during reassessment? No Presence of Pain Presence of Pain Yes Pain Scale Used Protocol: PSCALES Pain Scale Used Numeric Location Upper or Lower Lower Pain Location Body Site Back Description Description Constant IM Administration Charges Document 04/19/18 19:39 TA (Rec: 04/19/18 19:40 TA [id number]) Injection Site MAR Injection Site Right Deltoid Charges for Administration # of IM Administrations 1 - Scribe Statement The provider has reviewed the documentation as recorded by the Scribe Owen Peters Provider Scribe Attestation: All medical record entries made by the Scribe were at my direction and personally dictated by me. I have reviewed the chart and agree that the record accurately reflects my personal performance of the history, physical exam, medical decision making, and the department course for this patient. I have also personally directed, reviewed, and agree with the discharge instructions and disposition. Disposition/Present on Arrival - Present on Arrival Any Indicators Present on Arrival: No History of DVT/PE: No History of Uncontrolled Diabetes: No Urinary Catheter: No History of Decub. Ulcer: No History Surgical Site Infection Following: None - Disposition Have Diagnosis and Disposition been Completed?: Yes Diagnosis: Back muscle spasm, Back strain Disposition: HOME/ ROUTINE Disposition Time: 20:59 Patient Plan: Discharge Condition: GOOD Discharge Instructions (ExitCare): Muscle Strain (DC), Muscle Spasms (DC), Low Back Pain (DC) Additional Instructions: Rest/no strenuous physical activity/take meds as prescribed/follow up with your doctor this week Prescriptions: Cyclobenzaprine [Cyclobenzaprine HCl] 10 mg PO TID PRN #15 tab PRN Reason: Muscle Spasm Naproxen [Naprosyn] 500 mg PO BID PRN #14 tab PRN Reason: Pain Referrals: Adelaida Fowler MD [Primary Care Provider] - Follow up with primary Forms: [employer] ([place]), WORK NOTE
--- NOTE | 2018-04-20 08:43 | RAD ---
Date of service: 04/19/2018 HISTORY: pain COMPARISON: No prior. FINDINGS: BONES: Kyphosis slightly accentuated likely on the basis of mildly anterior wedge compression fractures of T7, T8 and T9. No destructive bony lesion appreciated. No spondylolisthesis. DISC SPACES: Multilevel spondylosis identified. SOFT TISSUES: Normal. OTHER FINDINGS: None. IMPRESSION: Mild anterior wedge compression fracture of T7, T8 and T9 creating mild hyper kyphotic deformity. These fractures of are of indeterminate age. MRI or bone scan can properly determine the age of these fractures. No spondylolisthesis. Mild multilevel spondylosis.
--- NOTE | 2018-04-20 08:44 | RAD ---
Date of service: 04/19/2018 PROCEDURE: Radiographs of the Lumbar Spine. HISTORY: pain COMPARISON: No prior. FINDINGS: BONES: Mild straightening of the lumbar curvature without fracture or spondylolisthesis identified. No destructive bony lesion appreciable. Intervertebral body and disc interspace heights appear within normal limits. DISC SPACES: Unremarkable. OTHER FINDINGS: None. IMPRESSION: Straightened curvature without fracture or spondylolisthesis appreciable. If symptoms persist or worsen follow-up CT or MRI should be considered.
== END 2018-04-19 21:07 | disposition home or self-care (01) ==
LOC: ED 18:57
DX: M62.830 Muscle spasm of back (principal); S39.012A Strain of muscle, fascia and tendon of lower back, initial encounter; X58.XXXA Exposure to other specified factors, initial encounter; Y92.9 Unspecified place or not applicable
CPT/HCPCS: 72070; 72110; 96372; 99282; J1885